=== PATIENT | male | born 1940 | race Caucasian/White ===

== ENCOUNTER 2019-04-09 08:55 | Inpatient (IN) | payer MEDICARE, BC ==
[2019-04-09 09:33] LABS: ADD MAN DIFF? NO
[2019-04-09] MEDS: ALBUTEROL 0.5% (NEB) 2.5 MG/0.5 ML AMP INH (09:41)
[2019-04-09] MEDS: SOD CHLORIDE 0.9% 500 ML IV (09:41)
[2019-04-09] MEDS: IPRATROPIUM (NEB) 0.5 MG/2.5 ML AMP INH ×2 (09:41→11:18)
[2019-04-09 09:51] LABS: ADD UMIC YES; UR ASCORBIC ACID 40 mg/dL (NEGATIVE); UR BACTERIA FEW /HPF (NONE SEEN); UR BILIRUBIN (Dip) NEGATIVE (NEGATIVE); UR BLOOD (Dip) NEGATIVE (NEGATIVE); UR CLARITY SLIGHTLY CLOUDY (CLEAR); UR COLOR AMBER (YELLOW); UR GLUCOSE (Dip) NEGATIVE (NEGATIVE); UR KETONES (Dip) NEGATIVE (NEGATIVE); UR LEUKOCYTE ESTERASE (Dip) NEGATIVE Leu/ul (NEGATIVE); UR MUCUS FEW /HPF (NONE SEEN); UR NITRITE (Dip) NEGATIVE (NEGATIVE); UR RBC 3 /HPF (0-5); UR TOTAL PROTEIN (Dip) 1+ mg/dl (NEGATIVE); UR UROBILINOGEN (Dip) 1+ mg/dL (NEGATIVE); UR WBC 5 /HPF (0-5)
[2019-04-09 10:40] LABS: WHITE BLOOD COUNT 4.9 10^3/ul (4.8-10.8)
[2019-04-09 10:40] LABS: BASOPHILS % 0.4 % (0.0-2.0); EOSINOPHILS # 0.1 10^3/ul (0.0-0.5); HEMATOCRIT 36.2 % (42.0-52.0); HEMOGLOBIN 12.3 g/dl (14.0-18.0); LYMPHOCYTES # 0.6 10^3/ul (0.8-2.9); MEAN CORPUSCULAR HEMOGLOBIN 31.6 pg (29.0-33.0); MEAN CORPUSCULAR VOLUME 93.1 fl (82.0-101.0); MEAN PLATELET VOLUME 11.6 fl (7.4-10.4); MONOCYTE # 0.4 10^3/ul (0.3-0.9); MONOCYTES % 8.4 % (0.0-11.0); NEUTROPHIL # 3.7 10^3/ul (1.6-7.5); PLATELET COUNT 181 10^3/UL (140-415); RED BLOOD COUNT 3.89 10^6/ul (4.70-6.10); RED CELL DISTRIBUTION WIDTH 15.6 % (11.5-14.5)
[2019-04-09 11:18] LABS: ALANINE AMINOTRANSFERASE 29 IU/L (13-69); ALBUMIN 3.9 g/dl (3.3-4.9); ALKALINE PHOSPHATASE 81 IU/L (42-121); AMYLASE 134 U/L (11-123); ANION GAP 9 (5-13); ASPARTATE AMINO TRANSFERASE 33 IU/L (15-46); BILIRUBIN,INDIRECT 1.4 mg/dl (0-1.1); BILIRUBIN,TOTAL 1.4 mg/dl (0.2-1.3); BLOOD UREA NITROGEN 26 mg/dl (7-20); CALCIUM 8.8 mg/dl (8.4-10.2); CARBON DIOXIDE 25 mmol/L (21-31); CHLORIDE 104 mmol/L (97-110); CREATININE 1.64 mg/dl (0.61-1.24); GLUCOSE 117 mg/dl (70-220); LIPASE 178 U/L (23-300); POTASSIUM 4.5 mmol/L (3.5-5.1); SODIUM 138 mmol/L (135-144); TOTAL PROTEIN 6.9 g/dl (6.1-8.1)
[2019-04-09 11:19] LABS: INR 2.59; PROTIME 27.8 Sec (11.9-14.9); PT RATIO 2.2
[2019-04-09] MEDS: LEVALBUTEROL (NEB) 1.25 MG/0.5 ML AMP INH (11:19)
[2019-04-09 11:20] LABS: PARTIAL THROMBOPLASTIN TIME 38.4 Sec (23.0-35.0)
[2019-04-09 11:31] LABS: TROPONIN-I 0.022 ng/ml (0.000-0.120)
[2019-04-09 11:43] LABS: B-TYPE NATRIURETIC PEPTIDE 19000 PG/ML (0-450)
[2019-04-09] MEDS: BENZONATATE 100 MG CAP PO (13:27)
[2019-04-09] MEDS ORDERED: ONDANSETRON 4 MG INJ IV ×2 (13:30→14:30)
[2019-04-09] MEDS ORDERED: ACETAMINOPHEN 325 MG TAB PO ×2 (13:30→14:30)
[2019-04-09] MEDS ORDERED: ALBUTEROL/IPRATROPIUM (NEB) 3 ML AMP HHN (14:30)
[2019-04-09] MEDS ORDERED: NACL 0.9% 3 ML SYG IV (14:30)
[2019-04-09] MEDS ORDERED: HYDROCODONE/APAP (5/325) TAB PO (14:30)
[2019-04-09] MEDS ORDERED: DOCUSATE SODIUM 100 MG CAP PO (14:30)
[2019-04-09] MEDS ORDERED: hydrALAzine 20 MG INJ IV (14:30)
[2019-04-09] MEDS ORDERED: morphine 2 MG INJ IV (14:30)
[2019-04-09] MEDS: FUROSEMIDE 20 MG INJ IV (15:03)
[2019-04-09] MEDS: PROMETHAZINE (1.25 MG/ML) 5 ML CUP PO (18:53)
[2019-04-09 19:38] LABS: CREATININE,URINE RANDOM 267.95 mg/dl (20-370)
[2019-04-09 19:38] LABS: SODIUM,URINE RANDOM 58 mmol/L (30-90)
[2019-04-09] MEDS: ATORVASTATIN 10 MG TAB PO (20:22)
[2019-04-09] MEDS: ZOLPIDEM 5 MG TAB PO (22:01)
[2019-04-10 06:26] LABS: ADD MAN DIFF? NO
[2019-04-10] MEDS: LEVOTHYROXINE 75 MCG TAB PO (06:27)
[2019-04-10 06:32] LABS: BASOPHILS % 0.2 % (0.0-2.0); EOSINOPHILS # 0.1 10^3/ul (0.0-0.5); EOSINOPHILS % 2.6 % (0.0-7.0); HEMATOCRIT 33.2 % (42.0-52.0); HEMOGLOBIN 11.2 g/dl (14.0-18.0); LYMPHOCYTES # 0.8 10^3/ul (0.8-2.9); LYMPHOCYTES % 16.6 % (15.0-51.0); MEAN CORPUSCULAR HEMOGLOBIN 31.3 pg (29.0-33.0); MEAN CORPUSCULAR HGB CONC 33.7 g/dl (32.0-37.0); MEAN CORPUSCULAR VOLUME 92.7 fl (82.0-101.0); MEAN PLATELET VOLUME 10.7 fl (7.4-10.4); MONOCYTE # 0.6 10^3/ul (0.3-0.9); MONOCYTES % 12.7 % (0.0-11.0); NEUTROPHIL # 3.1 10^3/ul (1.6-7.5); NEUTROPHILS % 67.7 % (39.0-77.0); PLATELET COUNT 133 10^3/UL (140-415); RED BLOOD COUNT 3.58 10^6/ul (4.70-6.10); RED CELL DISTRIBUTION WIDTH 15.3 % (11.5-14.5)
[2019-04-10 06:32] LABS: WHITE BLOOD COUNT 4.6 10^3/ul (4.8-10.8)
[2019-04-10 07:03] LABS: B-TYPE NATRIURETIC PEPTIDE 19000 PG/ML (0-450); CHOL/HDL RATIO 2.7 RATIO; CHOLESTEROL 104 mg/dl (100-200); HDL CHOLESTEROL 38 mg/dl (31-75); LDL CHOLESTEROL,CALCULATED 37 mg/dl; MAGNESIUM 1.9 mg/dl (1.7-2.5); TRIGLYCERIDES 146 mg/dl (0-149)
[2019-04-10 07:03] LABS: PHOSPHORUS 4.4 mg/dl (2.5-4.9)
[2019-04-10 07:11] LABS: FREE THYROXINE INDEX (Calc) 3.71 ug/ml (0.65-3.89); T3 UPTAKE 55.4 % (23.5-40.5); T4 (THYROXINE) 6.7 ug/dl (5.5-11.0)
[2019-04-10 07:12] LABS: TROPONIN-I 0.035 ng/ml (0.000-0.120)
[2019-04-10 07:28] LABS: ALANINE AMINOTRANSFERASE 33 IU/L (13-69); ALBUMIN 3.2 g/dl (3.3-4.9); ALBUMIN/GLOBULIN RATIO 1.14; ALKALINE PHOSPHATASE 69 IU/L (42-121); ANION GAP 8 (5-13); ASPARTATE AMINO TRANSFERASE 29 IU/L (15-46); BILIRUBIN,INDIRECT 1.2 mg/dl (0-1.1); BILIRUBIN,TOTAL 1.2 mg/dl (0.2-1.3); BLOOD UREA NITROGEN 27 mg/dl (7-20); CALCIUM 8.7 mg/dl (8.4-10.2); CARBON DIOXIDE 25 mmol/L (21-31); CHLORIDE 103 mmol/L (97-110); CREATININE 1.66 mg/dl (0.61-1.24); GLUCOSE 96 mg/dl (70-220); SODIUM 136 mmol/L (135-144)
[2019-04-10 08:06] LABS: HEMOGLOBIN A1C 5.7 % (0-5.9)
[2019-04-10] MEDS: MULTIVITAMINS/MINERALS TAB PO (08:52)
[2019-04-10] MEDS: POTASSIUM CHLORIDE (SR) 10 MEQ TAB PO (08:52)
[2019-04-10] MEDS: VITAMIN B COMPLEX/VIT C CAP PO (08:52)
[2019-04-10] MEDS: MAGNESIUM OXIDE 400 MG TAB PO (08:52)
[2019-04-10] MEDS: FUROSEMIDE 20 MG INJ IV ×2 (08:53→17:29)
[2019-04-10 11:11] LABS: ADD UMIC NO; UR ASCORBIC ACID 40 mg/dL (NEGATIVE); UR BILIRUBIN (Dip) NEGATIVE (NEGATIVE); UR BLOOD (Dip) NEGATIVE (NEGATIVE); UR CLARITY CLEAR (CLEAR); UR COLOR YELLOW (YELLOW); UR GLUCOSE (Dip) NEGATIVE (NEGATIVE); UR KETONES (Dip) NEGATIVE (NEGATIVE); UR LEUKOCYTE ESTERASE (Dip) NEGATIVE Leu/ul (NEGATIVE); UR NITRITE (Dip) NEGATIVE (NEGATIVE); UR SPECIFIC GRAVITY (Dip) 1.012 (1.003-1.030); UR TOTAL PROTEIN (Dip) NEGATIVE (NEGATIVE); UR UROBILINOGEN (Dip) NEGATIVE (NEGATIVE)
[2019-04-10] MEDS: DIGOXIN 500 MCG INJ IV ×2 (16:26→21:19)
[2019-04-10] MEDS ORDERED: WARFARIN 1 MG TAB PO (17:00)
[2019-04-10] MEDS: WARFARIN 2 MG TAB PO (17:29)
[2019-04-10] MEDS: ATORVASTATIN 10 MG TAB PO (21:18)
[2019-04-11] MEDS: LEVOTHYROXINE 75 MCG TAB PO (05:51)
[2019-04-11] MEDS: DIGOXIN 500 MCG INJ IV (05:52)
[2019-04-11 06:52] LABS: ADD MAN DIFF? NO
[2019-04-11 06:59] LABS: ABNORMAL IP MESSAGE 1; BASOPHILS % 0.1 % (0.0-2.0); EOSINOPHILS # 0.1 10^3/ul (0.0-0.5); EOSINOPHILS % 1.1 % (0.0-7.0); HEMATOCRIT 35.1 % (42.0-52.0); HEMOGLOBIN 11.9 g/dl (14.0-18.0); LYMPHOCYTES # 0.6 10^3/ul (0.8-2.9); LYMPHOCYTES % 7.3 % (15.0-51.0); MEAN CORPUSCULAR HEMOGLOBIN 30.9 pg (29.0-33.0); MEAN CORPUSCULAR HGB CONC 33.9 g/dl (32.0-37.0); MEAN CORPUSCULAR VOLUME 91.2 fl (82.0-101.0); MEAN PLATELET VOLUME 10.5 fl (7.4-10.4); MONOCYTE # 0.7 10^3/ul (0.3-0.9); MONOCYTES % 8.6 % (0.0-11.0); NEUTROPHIL # 6.7 10^3/ul (1.6-7.5); NEUTROPHILS % 82.7 % (39.0-77.0); PLATELET COUNT 141 10^3/UL (140-415); POSITIVE DIFF @See below; RED BLOOD COUNT 3.85 10^6/ul (4.70-6.10); RED CELL DISTRIBUTION WIDTH 15.2 % (11.5-14.5)
[2019-04-11 06:59] LABS: WHITE BLOOD COUNT 8.1 10^3/ul (4.8-10.8)
[2019-04-11 07:14] LABS: ANION GAP 8 (5-13); BLOOD UREA NITROGEN 30 mg/dl (7-20); CALCIUM 8.8 mg/dl (8.4-10.2); CARBON DIOXIDE 27 mmol/L (21-31); CHLORIDE 101 mmol/L (97-110); CREATININE 1.59 mg/dl (0.61-1.24); GLUCOSE 99 mg/dl (70-220); MAGNESIUM 1.9 mg/dl (1.7-2.5); PHOSPHORUS 3.5 mg/dl (2.5-4.9); POTASSIUM 4.1 mmol/L (3.5-5.1); SODIUM 136 mmol/L (135-144)
[2019-04-11] MEDS: MAGNESIUM OXIDE 400 MG TAB PO (08:47)
[2019-04-11] MEDS: POTASSIUM CHLORIDE (SR) 10 MEQ TAB PO (08:48)
[2019-04-11] MEDS: MULTIVITAMINS/MINERALS TAB PO (08:48)
[2019-04-11] MEDS: VITAMIN B COMPLEX/VIT C CAP PO (08:48)
[2019-04-11] MEDS: FUROSEMIDE 20 MG INJ IV (08:49)
[2019-04-11] MEDS: BUMETANIDE 1 MG INJ IV (15:12)
[2019-04-11] MEDS: WARFARIN 2 MG TAB PO (17:35)
[2019-04-11] MEDS: ATORVASTATIN 10 MG TAB PO (21:19)
[2019-04-12] MEDS: LEVOTHYROXINE 75 MCG TAB PO (05:31)
[2019-04-12] MEDS: VITAMIN B COMPLEX/VIT C CAP PO (08:41)
[2019-04-12] MEDS: POTASSIUM CHLORIDE (SR) 10 MEQ TAB PO (08:41)
[2019-04-12] MEDS: MAGNESIUM OXIDE 400 MG TAB PO (08:41)
[2019-04-12] MEDS: AMIODARONE 200 MG TAB PO (08:42)
[2019-04-12] MEDS: MULTIVITAMINS/MINERALS TAB PO (08:42)
[2019-04-12] MEDS: FUROSEMIDE 20 MG INJ IV (08:42)
[2019-04-12] MEDS: LOSARTAN 50 MG TAB PO (08:43)
[2019-04-12 08:48] LABS: DIGOXIN 2.2 ng/ml (1.0-2.0)
[2019-04-12 14:08] LABS: CREATININE, RANDOM URINE 239 mg/dL (20-320); MICROALBUMIN 10.8 mg/dL; MICROALBUMIN/CREATININE RATIO 45 (<30)
[2019-04-12 15:23] LABS: INR 2.15; PROTIME 24.1 Sec (11.9-14.9); PT RATIO 1.9
[2019-04-12 15:33] LABS: ANION GAP 7 (5-13); BLOOD UREA NITROGEN 33 mg/dl (7-20); CALCIUM 8.9 mg/dl (8.4-10.2); CARBON DIOXIDE 32 mmol/L (21-31); CHLORIDE 96 mmol/L (97-110); GLUCOSE 103 mg/dl (70-220); POTASSIUM 4.1 mmol/L (3.5-5.1); SODIUM 135 mmol/L (135-144)
== END 2019-04-12 16:53 | disposition home or self-care (01) | DRG 291 ==
LOC: E/R 08:55 → TEL 13:04
DX: I13.0 Hypertensive heart and chronic kidney disease with heart failure and stage 1 through stage 4 chronic kidney disease, or unspecified chronic kidney disease (principal); I50.23 Acute on chronic systolic (congestive) heart failure; J96.00 Acute respiratory failure, unspecified whether with hypoxia or hypercapnia; N17.9 Acute kidney failure, unspecified; N18.9 Chronic kidney disease, unspecified; D63.1 Anemia in chronic kidney disease; I42.9 Cardiomyopathy, unspecified; E03.9 Hypothyroidism, unspecified; J44.9 Chronic obstructive pulmonary disease, unspecified; D64.9 Anemia, unspecified; I48.2 Chronic atrial fibrillation; Z79.01 Long term (current) use of anticoagulants; Z95.810 Presence of automatic (implantable) cardiac defibrillator
CPT/HCPCS: 71045; 76775; 80048; 80053; 80061; 80162; 81001; 81003; 82043; 82150; 83036; 83690; 83735; 83880; 84100; 84155; 84300; 84436; 84479; 84484; 85025; 85610; 85730; 87075; 87086; 93005; 93306; 94644; 94645; 97116; 97162; 97530; 99285-25